=== PATIENT | female | born 1985 | race African-American/Black ===

== ENCOUNTER 2017-07-03 07:58 | Emergency (ER) | payer OTHER ==
[2017-07-03] MEDS ORDERED: ONDANSETRON 4 MG/2 ML VIAL IVP STA (08:23)
[2017-07-03] MEDS ORDERED: SODIUM CHLORIDE 0.9% 1,000 ML IV STA (08:23)
[2017-07-03] MEDS ORDERED: KETOROLAC 30 MG/ML 1 ML VIAL IVP STA (08:23)
--- NOTE | 2017-07-03 08:37 | ED ---
Nausea/Vomiting/Diarrhea HPI - General Chief complaint: Nausea/Vomiting/Diarrhea Stated complaint: Vomiting, backache Time Seen by Provider: 07/03/17 08:17 Source: patient, RN notes reviewed, old records reviewed Mode of arrival: ambulatory Limitations: no limitations - History of Present Illness Initial comments: This is a 32-year-old female presents emergency Department chief complaint of 1 week of abdominal pain radiating towards her back and upper shoulders. She reports that she saw her primary care provider and was initially told she had a sciatic nerve problem. She was prescribed muscle relaxers. Patient reports she has not taken them because it makes her sleepy. She reports that over the past few days she's had increased nausea and vomiting. She also reports daily diarrhea. She denies any blood in her stool or vomit. She denies any urinary frequency or concerns for infection or vaginal discharge. She does have an IUD. Surgical history also includes cholecystectomy, knee surgeries. - Related Data Previous Rx's Medication Instructions Recorded Nitrofurantoin Monohyd/M-Cryst 100 mg PO Q12HR #14 cap 07/03/17 [Macrobid] Ondansetron Odt [Zofran Odt] 4 mg PO Q8HR PRN #12 tab 07/03/17 Allergies Allergy/AdvReac Type Severity Reaction Status Date / Time No Known Allergies Allergy Verified 07/03/17 08:27 Review of Systems ROS Statement: Those systems with pertinent positive or pertinent negative responses have been documented in the HPI. ROS Other: All systems not noted in ROS Statement are negative. Past Medical History Past Medical History: No Reported History History of Any Multi-Drug Resistant Organisms: None Reported Past Surgical History: Cholecystectomy, Orthopedic Surgery Past Psychological History: No Psychological Hx Reported Smoking Status: Current some day smoker Past Alcohol Use History: None Reported Past Drug Use History: Marijuana General Exam - General Exam Comments Initial Comments: This is a 32-year-old female. Patient does not appear to be in any acute distress. Limitations: no limitations General appearance: alert, in no apparent distress Head exam: Present: atraumatic, normocephalic, normal inspection Eye exam: Present: normal appearance, PERRL, EOMI. Absent: scleral icterus, conjunctival injection, periorbital swelling ENT exam: Present: normal exam, mucous membranes moist Neck exam: Present: normal inspection. Absent: tenderness, meningismus, lymphadenopathy Respiratory exam: Present: normal lung sounds bilaterally. Absent: respiratory distress, wheezes, rales, rhonchi, stridor Cardiovascular Exam: Present: regular rate, normal rhythm, normal heart sounds. Absent: systolic murmur, diastolic murmur, rubs, gallop, clicks GI/Abdominal exam: Present: soft, tenderness (She has some epigastric tenderness.), normal bowel sounds. Absent: distended, guarding, rebound, rigid Extremities exam: Present: normal inspection, full ROM, normal capillary refill. Absent: tenderness, pedal edema, joint swelling, calf tenderness Back exam: Present: normal inspection, muscle spasm (Patient is tender to light palpation over the thoracic spine paraspinal muscles, as well as cervical spinal muscles.) Neurological exam: Present: alert, oriented X3, CN II-XII intact Psychiatric exam: Present: normal affect, normal mood Skin exam: Present: warm, dry, intact, normal color. Absent: rash Course Vital Signs 07/03/17 07:59 Temperature 97.9 F Pulse Rate 62 Respiratory 18 Rate Blood Pressure 118/56 O2 Sat by Pulse 99 Oximetry Medical Decision Making - Medical Decision Making 32-year-old female chief complaint of 1 week of back pain, and a couple episodes of vomiting. Patient's lab work was reviewed and no significant abnormalities, slight trace of blood in the urine and positive leukocyte esterase. There was a lot of epithelial cells indicating contamination. Culture will be obtained. However I will start the patient on Macrobid for concern for urinary tract infection. Patient will be discharged with a temperature medicine, she is a 31 been prescribed muscle relaxers from her PCP. Discussed that she needs to rest and remain hydrated. Patient understands treatment plan will comply. She was reevaluated just a better after receiving Toradol. - Lab Data Result diagrams: 07/03/17 08:57 07/03/17 08:57 Lab Results 07/03/17 07/03/17 07/03/17 Range/Units 08:57 08:57 08:57 WBC 7.5 (3.8-10.6) k/uL RBC 4.47 (3.80-5.40) m/uL Hgb 13.4 (11.4-16.0) gm/dL Hct 39.2 (34.0-46.0) % MCV 87.7 (80.0-100.0) fL MCH 30.0 (25.0-35.0) pg MCHC 34.2 (31.0-37.0) g/dL RDW 13.5 (11.5-15.5) % Plt Count 193 (150-450) k/uL Neutrophils % 69 % Lymphocytes % 23 % Monocytes % 4 % Eosinophils % 2 % Basophils % 1 % Neutrophils # 5.2 (1.3-7.7) k/uL Lymphocytes # 1.7 (1.0-4.8) k/uL Monocytes # 0.3 (0-1.0) k/uL Eosinophils # 0.1 (0-0.7) k/uL Basophils # 0.0 (0-0.2) k/uL Sodium 142 (137-145) mmol/L Potassium 3.5 (3.5-5.1) mmol/L Chloride 108 H (98-107) mmol/L Carbon Dioxide 24 (22-30) mmol/L Anion Gap 10 mmol/L BUN 9 (7-17) mg/dL Creatinine 0.58 (0.52-1.04) mg/dL Est GFR (MDRD) Af Amer >60 (>60 ml/min/1.73 sqM) Est GFR (MDRD) Non-Af >60 (>60 ml/min/1.73 sqM) Glucose 79 (74-99) mg/dL Calcium 9.4 (8.4-10.2) mg/dL Total Bilirubin 0.7 (0.2-1.3) mg/dL AST 15 (14-36) U/L ALT 21 (9-52) U/L Alkaline Phosphatase 77 (38-126) U/L Total Protein 6.9 (6.3-8.2) g/dL Albumin 4.1 (3.5-5.0) g/dL Amylase 34 (30-110) U/L Lipase 53 (23-300) U/L Urine Color Yellow Urine Appearance Cloudy H (Clear) Urine pH 6.0 (5.0-8.0) Ur Specific [place] 1.027 (1.001-1.035) Urine Protein 1+ H (Negative) Urine Glucose (UA) Negative (Negative) Urine Ketones 2+ H (Negative) Urine Blood Small H (Negative) Urine Nitrite Negative (Negative) Urine Bilirubin Negative (Negative) Urine Urobilinogen 2.0 (<2.0) mg/dL Ur Leukocyte Esterase Moderate H (Negative) Urine RBC 4 (0-5) /hpf Urine WBC 4 (0-5) /hpf Ur Squamous Epith Cells 52 H (0-4) /hpf Urine Bacteria Rare H (None) /hpf Urine Mucus Rare H (None) /hpf Urine HCG, Qual (Not Detectd) 07/03/17 Range/Units 08:57 WBC (3.8-10.6) k/uL RBC (3.80-5.40) m/uL Hgb (11.4-16.0) gm/dL Hct (34.0-46.0) % MCV (80.0-100.0) fL MCH (25.0-35.0) pg MCHC (31.0-37.0) g/dL RDW (11.5-15.5) % Plt Count (150-450) k/uL Neutrophils % % Lymphocytes % % Monocytes % % Eosinophils % % Basophils % % Neutrophils # (1.3-7.7) k/uL Lymphocytes # (1.0-4.8) k/uL Monocytes # (0-1.0) k/uL Eosinophils # (0-0.7) k/uL Basophils # (0-0.2) k/uL Sodium (137-145) mmol/L Potassium (3.5-5.1) mmol/L Chloride (98-107) mmol/L Carbon Dioxide (22-30) mmol/L Anion Gap mmol/L BUN (7-17) mg/dL Creatinine (0.52-1.04) mg/dL Est GFR (MDRD) Af Amer (>60 ml/min/1.73 sqM) Est GFR (MDRD) Non-Af (>60 ml/min/1.73 sqM) Glucose (74-99) mg/dL Calcium (8.4-10.2) mg/dL Total Bilirubin (0.2-1.3) mg/dL AST (14-36) U/L ALT (9-52) U/L Alkaline Phosphatase (38-126) U/L Total Protein (6.3-8.2) g/dL Albumin (3.5-5.0) g/dL Amylase (30-110) U/L Lipase (23-300) U/L Urine Color Urine Appearance (Clear) Urine pH (5.0-8.0) Ur Specific [place] (1.001-1.035) Urine Protein (Negative) Urine Glucose (UA) (Negative) Urine Ketones (Negative) Urine Blood (Negative) Urine Nitrite (Negative) Urine Bilirubin (Negative) Urine Urobilinogen (<2.0) mg/dL Ur Leukocyte Esterase (Negative) Urine RBC (0-5) /hpf Urine WBC (0-5) /hpf Ur Squamous Epith Cells (0-4) /hpf Urine Bacteria (None) /hpf Urine Mucus (None) /hpf Urine HCG, Qual Not Detected (Not Detectd) Disposition Clinical Impression: Back strain, UTI (urinary tract infection), Dehydration Disposition: HOME SELF-CARE Condition: Good Instructions: Acute Nausea and Vomiting (ED) Additional Instructions: Patient denies rest, remain hydrated. Muscle relaxers and anti-inflammatory medicines as prescribed. Completely antibiotic prescription. Follow-up with PCP. Return to the emergency department if any alarming signs or symptoms occur. Prescriptions: Nitrofurantoin Monohyd/M-Cryst [Macrobid] 100 mg PO Q12HR #14 cap Ondansetron Odt [Zofran Odt] 4 mg PO Q8HR PRN #12 tab PRN Reason: Nausea Referrals: Patty Mendoza MD [Primary Care Provider] - 1-2 days Time of Disposition: 10:29
[2017-07-03 09:20] LABS: Appearance,Urine Cloudy (Clear); Bacteria,Urine Rare /hpf; Bilirubin,Urine Negative (Negative); Glucose,Urine (UA) Negative (Negative); Ketones,Urine 2+ (Negative); Leukocyte Esterase,Urine Moderate (Negative); Mucus,Urine Rare /hpf; Nitrite,Urine Negative (Negative); Particle Count 8918; Protein,Urine 1+ (Negative); RBC,Urine 4 /hpf (0-5); Specific Gravity,Urine 1.027 (1.001-1.035); Squamous Epithelial Cell,Urine 52 /hpf (0-4); UA Billing (MACRO vs. MICRO) MICRO; WBC,Urine 4 /hpf (0-5)
[2017-07-03 09:28] LABS: Basophils % (A) 1 %; CH 29.2; CHCM 33.5; Eosinophils # (A) 0.1 k/uL (0-0.7); Eosinophils % (A) 2 %; HCT 39.2 % (34.0-46.0); HDW 2.53; HGB 13.4 gm/dL (11.4-16.0); Luc # (Auto) 0.12; Luc % (Auto) 2; Lymphocytes # (A) 1.7 k/uL (1.0-4.8); Lymphocytes % (A) 23 %; MCHC 34.2 g/dL (31.0-37.0); MCV 87.7 fL (80.0-100.0); Mean Platelet Volume 8.4; Monocytes # (A) 0.3 k/uL (0-1.0); Monocytes % (A) 4 %; Neutrophils # (A) 5.2 k/uL (1.3-7.7); Neutrophils % (A) 69 %; RBC 4.47 m/uL (3.80-5.40); RDW 13.5 % (11.5-15.5); WBC 7.5 k/uL (3.8-10.6); WBC (Perox) 7.24
[2017-07-03 09:29] LABS: ALT 21 U/L (9-52); AST 15 U/L (14-36); Alkaline Phosphatase 77 U/L (38-126); Amylase 34 U/L (30-110); Anion Gap 10 mmol/L; Blood Urea Nitrogen 9 mg/dL (7-17); Calcium 9.4 mg/dL (8.4-10.2); Carbon Dioxide 24 mmol/L (22-30); Chloride 108 mmol/L (98-107); Glucose 79 mg/dL (74-99); Non-African American GFR(MDRD) >60 (>60 ml/min/1.73 sqM); Potassium 3.5 mmol/L (3.5-5.1); Sodium 142 mmol/L (137-145); Total Bilirubin 0.7 mg/dL (0.2-1.3); Total Protein 6.9 g/dL (6.3-8.2)
--- NOTE | 2017-07-03 09:58 | XR ---
EXAMINATION TYPE: XR KUB DATE OF EXAM: 07/03/2017 COMPARISON: NONE HISTORY: Pain TECHNIQUE: One view abdominal series FINDINGS: The osseous structures are intact. The bowel gas pattern is nonspecific. Lung bases are clear. Surg ical clips in the gallbladder fossa noted. Intrauterine device seen. IMPRESSION: 1. Nonspecific abdomen.
[2017-07-03 10:32] VITALS: BP 105/58; PULSE 70; RESP 16; TEMP 97.2
== END 2017-07-03 10:49 | disposition home or self-care (01) ==
LOC: EC 07:58
DX: S29.012A Strain of muscle and tendon of back wall of thorax, initial encounter (principal); N39.0 Urinary tract infection, site not specified; E86.0 Dehydration; M62.830 Muscle spasm of back; F17.200 Nicotine dependence, unspecified, uncomplicated; Z90.49 Acquired absence of other specified parts of digestive tract; X58.XXXA Exposure to other specified factors, initial encounter
CPT/HCPCS: 99284; 96374; 96375; 96361 ×2; 36415; 80053; 82150; 83690; 85025; 81001; 81025; 87086; 87077; 87186; 74000; J2405; J1885

== ENCOUNTER 2017-12-07 04:56 | Emergency (ER) | payer OTHER ==
[2017-12-07 05:54] LABS: Appearance,Urine Clear (Clear); Bilirubin,Urine Negative (Negative); Blood,Urine Negative (Negative); Color,Urine Yellow; Glucose,Urine (UA) Negative (Negative); Ketones,Urine Negative (Negative); Leukocyte Esterase,Urine Negative (Negative); Nitrite,Urine Negative (Negative); PH, Urine 6.5 (5.0-8.0); Protein,Urine Negative (Negative); Specific Gravity,Urine 1.019 (1.001-1.035); Urobilinogen,Urine <2.0 mg/dL (<2.0)
[2017-12-07] MEDS ORDERED: MORPHINE SULFATE 5 MG/ML SYRINGE IV STA (05:55)
[2017-12-07 05:56] LABS: Basophils % (A) 1 %; Eosinophils # (A) 0.5 k/uL (0-0.7); Eosinophils % (A) 7 %; HCT 38.8 % (34.0-46.0); HGB 12.4 gm/dL (11.4-16.0); Lymphocytes # (A) 1.5 k/uL (1.0-4.8); Lymphocytes % (A) 21 %; MCH 28.9 pg (25.0-35.0); MCHC 32.1 g/dL (31.0-37.0); MCV 90.2 fL (80.0-100.0); Monocytes # (A) 0.3 k/uL (0-1.0); Monocytes % (A) 4 %; Neutrophils # (A) 4.6 k/uL (1.3-7.7); Neutrophils % (A) 66 %; Platelet Count 192 k/uL (150-450); RBC 4.29 m/uL (3.80-5.40); RDW 14.7 % (11.5-15.5)
[2017-12-07 06:13] LABS: ALT 14 U/L (9-52); AST 15 U/L (14-36); Albumin 3.7 g/dL (3.5-5.0); Alkaline Phosphatase 69 U/L (38-126); Amylase 47 U/L (30-110); Anion Gap 7 mmol/L; Blood Urea Nitrogen 13 mg/dL (7-17); Calcium 9.4 mg/dL (8.4-10.2); Carbon Dioxide 26 mmol/L (22-30); Chloride 108 mmol/L (98-107); Glucose 80 mg/dL (74-99); Lipase 99 U/L (23-300); Potassium 3.9 mmol/L (3.5-5.1); Sodium 141 mmol/L (137-145); Total Bilirubin 0.6 mg/dL (0.2-1.3); Total Protein 6.3 g/dL (6.3-8.2)
[2017-12-07 07:20] VITALS: RESP 16
--- NOTE | 2017-12-07 07:31 | CT ---
EXAM: CT Abdomen and Pelvis Without Intravenous Contrast CLINICAL HISTORY: Reason: Pain Pt c/o mid upper abd pain as well as pelvic pain x 7 days with nausea. SX HX-Cholecystectomy and IUD placement. TECHNIQUE: Axial computed tomography images of the abdomen and pelvis without intravenous contrast. CTDI is 12.30 mGy and DLP is 624.80 mGy-cm. This CT exam was performed using one or more of the following dose reduction techniques: automated exposure control, adjustment of the mA and/or kV according to patient size, and/or use of iterative reconstruction technique. COMPARISON: No relevant prior studies available. FINDINGS: Lower thorax: Minimal atelectasis or pneumonitis in the lingula. ABDOMEN: Liver: Unremarkable. Gallbladder and bile ducts: Cholecystectomy. No ductal dilation. Pancreas: Unremarkable. No ductal dilation. Spleen: Unremarkable. No splenomegaly. Adrenals: Unremarkable. No mass. Kidneys and ureters: Unremarkable. No obstructing stones. No hydronephrosis. Stomach and bowel: Few mildly distended small bowel loops. No mucosal thickening. Appendix: Normal appendix. PELVIS: Bladder: Unremarkable. No stones. Reproductive: IUD within the uterus, appears in appropriate position. ABDOMEN and PELVIS: Intraperitoneal space: Small amount of free fluid in the pelvis. No free air. Bones/joints: No acute fracture. No dislocation. Soft tissues: Small fat-containing umbilical hernia Vasculature: Unremarkable. No abdominal aortic aneurysm. Lymph nodes: Unremarkable. No enlarged lymph nodes. IMPRESSION: 1. Few mildly distended small bowel loops. May represent enteritis. 2. Cholecystectomy. 3. IUD within the uterus.
[2017-12-07] MEDS ORDERED: cefTRIAXone 250 MG VIAL IM STA (07:58)
--- NOTE | 2017-12-07 07:58 | ED ---
Abdominal Pain HPI <Juan Carlos Shanks - Last Filed: 12/07/17 08:27> - General Source: patient Mode of arrival: ambulatory Limitations: no limitations - History of Present Illness MD Complaint: abdominal pain Onset/Timin -: week(s) Location: LLQ, RLQ Radiation: none Migration to: no migration Severity: moderate Quality: cramping Consistency: colicky Improves With: nothing Worsens With: nothing Associated Symptoms: denies other symptoms <Jeancarlos Bautista - Last Filed: 12/13/17 01:33> - General Chief Complaint: Abdominal Pain Stated Complaint: abd pain Time Seen by Provider: 12/07/17 05:38 - History of Present Illness Initial Comments: This patient's a 32-year-old woman who presents with lower abdominal pain that is been going on for nearly one week. The pain is currently moderate in intensity, crampy and it is somewhat intermittent. She states that he can come on for hours at a time and then will improve somewhat. She was also seen at [facility] stating that she had a workup there and was told that everything came back normal. Patient denies change in urination or bowel movements. No vaginal discharge. (Jeancarlos Bautista) - Related Data Home Medications Medication Instructions Recorded Confirmed Acetaminophen Tab [Tylenol Tab] 650 mg PO Q4-6H PRN 12/07/17 12/07/17 Ibuprofen [Motrin Ib] 200 - 400 mg PO Q4-6H PRN 12/07/17 12/07/17 traMADol HCL [Ultram] 50 mg PO ONCE PRN 12/07/17 12/07/17 Previous Rx's Medication Instructions Recorded Doxycycline Monohydrate [Monodox] 100 mg PO Q12HR #28 cap 12/07/17 Allergies Allergy/AdvReac Type Severity Reaction Status Date / Time amoxicillin Allergy Anaphylaxis Verified 12/07/17 05:06 Review of Systems ROS Other: All systems not noted in ROS Statement are negative. <Juan Carlos Shanks - Last Filed: 12/07/17 08:27> ROS Other: All systems not noted in ROS Statement are negative. Constitutional: Denies: fever, chills Respiratory: Denies: cough, dyspnea, wheezes Cardiovascular: Denies: chest pain, palpitations, edema Gastrointestinal: Reports: abdominal pain. Denies: nausea, vomiting, diarrhea, constipation Genitourinary: Denies: dysuria, frequency, hematuria, discharge, abnormal menses Musculoskeletal: Denies: back pain Skin: Denies: rash Neurological: Denies: headache, weakness, numbness <Jeancarlos Bautista Last Filed: 12/13/17 01:33> ROS Statement: Those systems with pertinent positive or pertinent negative responses have been documented in the HPI. Past Medical History Past Medical History: No Reported History Additional Past Medical History / Comment(s): ovarian cysts History of Any Multi-Drug Resistant Organisms: None Reported Past Surgical History: Cholecystectomy, Orthopedic Surgery Past Psychological History: No Psychological Hx Reported Smoking Status: Former smoker Past Alcohol Use History: Occasional Past Drug Use History: Marijuana <Jeancarlos Bautista Last Filed: 12/13/17 01:33> General Exam Limitations: no limitations General appearance: alert, in no apparent distress Head exam: Present: atraumatic, normocephalic Eye exam: Present: normal appearance. Absent: scleral icterus, conjunctival injection Neck exam: Present: normal inspection Respiratory exam: Present: normal lung sounds bilaterally. Absent: respiratory distress, wheezes, rales, rhonchi, stridor Cardiovascular Exam: Present: regular rate, normal rhythm, normal heart sounds. Absent: systolic murmur, diastolic murmur, rubs, gallop GI/Abdominal exam: Present: soft, tenderness (There is mild bilateral lower quadrant tenderness without rebound or guarding), normal bowel sounds. Absent: distended, guarding, rebound, rigid, organomegaly, mass, pulsatile mass External exam: Present: normal external exam. Absent: erythema, swelling, lesions, lacerations, ecchymosis Speculum exam: Present: cervical discharge (There is a trace of what appears to be slightly bloody, slightly purulent discharge). Absent: erythema By manual exam: Present: cervical motion tenderness. Absent: adnexal tenderness , adnexal mass, uterine enlargement, uterine tenderness Extremities exam: Present: normal inspection, normal capillary refill. Absent: pedal edema, calf tenderness Back exam: Present: normal inspection. Absent: CVA tenderness (R), CVA tenderness (L) Neurological exam: Present: alert Skin exam: Present: warm, dry, intact, normal color. Absent: rash <MindiJeancarlos helms Last Filed: 02/04/18 01:33> Vital Signs 12/07/17 12/07/17 12/07/17 05:02 07:19 08:38 Temperature 97.6 F 98.2 F Pulse Rate 75 78 Respiratory 20 16 16 Rate Blood Pressure 116/67 117/62 118/79 O2 Sat by Pulse 100 Oximetry Medical Decision Making - Lab Data Result diagrams: 12/07/17 05:40 12/07/17 05:40 <Juan Carlos Shanks - Last Filed: 12/07/17 08:27> - Lab Data Result diagrams: 12/07/17 05:40 12/07/17 05:40 <Jeancarlos Bautista - Last Filed: 12/13/17 01:33> - Medical Decision Making Patient is a 32-year-old woman with bilateral lower quadrant abdominal pain of nearly one week duration. Her initial workup is unremarkable. Given this recommended pelvic examination which is performed here in the emergency department. The patient does have some cervical motion tenderness and will be treated empirically pending the results of her swabs, and follow-up with gynecology to ensure that there is improvement. Discussed return parameters. ( Jeancarlos Bautista) - Lab Data Lab Results 12/07/17 12/07/17 12/07/17 Range/Units 05:22 05:22 05:40 WBC (3.8-10.6) k/uL RBC (3.80-5.40) m/uL Hgb (11.4-16.0) gm/dL Hct (34.0-46.0) % MCV (80.0-100.0) fL MCH (25.0-35.0) pg MCHC (31.0-37.0) g/dL RDW (11.5-15.5) % Plt Count (150-450) k/uL Neutrophils % % Lymphocytes % % Monocytes % % Eosinophils % % Basophils % % Neutrophils # (1.3-7.7) k/uL Lymphocytes # (1.0-4.8) k/uL Monocytes # (0-1.0) k/uL Eosinophils # (0-0.7) k/uL Basophils # (0-0.2) k/uL Sodium 141 (137-145) mmol/L Potassium 3.9 (3.5-5.1) mmol/L Chloride 108 H (98-107) mmol/L Carbon Dioxide 26 (22-30) mmol/L Anion Gap 7 mmol/L BUN 13 (7-17) mg/dL Creatinine 0.65 (0.52-1.04) mg/dL Est GFR (MDRD) Af Amer >60 (>60 ml/min/1.73 sqM) Est GFR (MDRD) Non-Af >60 (>60 ml/min/1.73 sqM) Glucose 80 (74-99) mg/dL Calcium 9.4 (8.4-10.2) mg/dL Total Bilirubin 0.6 (0.2-1.3) mg/dL AST 15 (14-36) U/L ALT 14 (9-52) U/L Alkaline Phosphatase 69 (38-126) U/L Total Protein 6.3 (6.3-8.2) g/dL Albumin 3.7 (3.5-5.0) g/dL Amylase 47 (30-110) U/L Lipase 99 (23-300) U/L Urine Color Yellow Urine Appearance Clear (Clear) Urine pH 6.5 (5.0-8.0) Ur Specific [place] 1.019 (1.001-1.035) Urine Protein Negative (Negative) Urine Glucose (UA) Negative (Negative) Urine Ketones Negative (Negative) Urine Blood Negative (Negative) Urine Nitrite Negative (Negative) Urine Bilirubin Negative (Negative) Urine Urobilinogen <2.0 (<2.0) mg/dL Ur Leukocyte Esterase Negative (Negative) Urine HCG, Qual Not Detected (Not Detectd) C.trachomatis RNA (Not detected) Chlamydia/GC DNA Source N.gonorrhoeae RNA (Not detected) Trichomonas Ag (Rapid) (Negative) 12/07/17 12/07/17 12/07/17 Range/Units 05:40 07:50 07:50 WBC 7.0 (3.8-10.6) k/uL RBC 4.29 (3.80-5.40) m/uL Hgb 12.4 (11.4-16.0) gm/dL Hct 38.8 (34.0-46.0) % MCV 90.2 (80.0-100.0) fL MCH 28.9 (25.0-35.0) pg MCHC 32.1 (31.0-37.0) g/dL RDW 14.7 (11.5-15.5) % Plt Count 192 (150-450) k/uL Neutrophils % 66 % Lymphocytes % 21 % Monocytes % 4 % Eosinophils % 7 % Basophils % 1 % Neutrophils # 4.6 (1.3-7.7) k/uL Lymphocytes # 1.5 (1.0-4.8) k/uL Monocytes # 0.3 (0-1.0) k/uL Eosinophils # 0.5 (0-0.7) k/uL Basophils # 0.0 (0-0.2) k/uL Sodium (137-145) mmol/L Potassium (3.5-5.1) mmol/L Chloride (98-107) mmol/L Carbon Dioxide (22-30) mmol/L Anion Gap mmol/L BUN (7-17) mg/dL Creatinine (0.52-1.04) mg/dL Est GFR (MDRD) Af Amer (>60 ml/min/1.73 sqM) Est GFR (MDRD) Non-Af (>60 ml/min/1.73 sqM) Glucose (74-99) mg/dL Calcium (8.4-10.2) mg/dL Total Bilirubin (0.2-1.3) mg/dL AST (14-36) U/L ALT (9-52) U/L Alkaline Phosphatase (38-126) U/L Total Protein (6.3-8.2) g/dL Albumin (3.5-5.0) g/dL Amylase (30-110) U/L Lipase (23-300) U/L Urine Color Urine Appearance (Clear) Urine pH (5.0-8.0) Ur Specific [place] (1.001-1.035) Urine Protein (Negative) Urine Glucose (UA) (Negative) Urine Ketones (Negative) Urine Blood (Negative) Urine Nitrite (Negative) Urine Bilirubin (Negative) Urine Urobilinogen (<2.0) mg/dL Ur Leukocyte Esterase (Negative) Urine HCG, Qual (Not Detectd) C.trachomatis RNA Not detected (Not detected) Chlamydia/GC DNA Source Endocervix N.gonorrhoeae RNA Not detected (Not detected) Trichomonas Ag (Rapid) Negative (Negative) Disposition <Juan Carlos Shanks - Last Filed: 12/07/17 08:27> <Jeancarlos Bautista Last Filed: 12/13/17 01:33> Clinical Impression: Abdominal pain, Cervicitis Disposition: HOME SELF-CARE Condition: Good Instructions: Cervicitis (ED), Abdominal Pain (ED) Prescriptions: Doxycycline Monohydrate [Monodox] 100 mg PO Q12HR #28 cap Referrals: Patty Mendoza MD [Primary Care Provider] - 1-2 days Dorene Singh MD [STAFF PHYSICIAN] - 1-2 days
[2017-12-07] MEDS ORDERED: DOXYCYCLINE 50 MG CAP PO STA (07:59)
[2017-12-07 08:40] VITALS: BP 118/79; PULSE 78; TEMP 98.2
[2017-12-08 09:49] LABS: Chlamydia trachomatis rRNA Not detected (Not detected); Neisseria gonorrhoeae rRNA Not detected (Not detected)
== END 2017-12-07 08:44 | disposition home or self-care (01) ==
LOC: EC 04:56
DX: N72 Inflammatory disease of cervix uteri (principal); R10.31 Right lower quadrant pain; R10.32 Left lower quadrant pain; Z87.891 Personal history of nicotine dependence; Z88.0 Allergy status to penicillin; Z90.49 Acquired absence of other specified parts of digestive tract
CPT/HCPCS: 36415; 80053; 87591; 87491; 82150; 83690; 85025; 81003; 81025; 87808; 87070; 74176; 99284; 96374; 96372; J0696; J2274; 87205

== ENCOUNTER 2018-08-13 18:14 | Observation (INO) | payer OTHER ==
[2018-08-13] MEDS ORDERED: SODIUM CHLORIDE 0.9% 1,000 ML IV STA (19:37)
--- NOTE | 2018-08-13 19:42 | ED ---
General Adult HPI - General Chief complaint: Abdominal Pain Stated complaint: Abdominal pain Time Seen by Provider: 08/13/18 19:08 Source: patient, RN notes reviewed Mode of arrival: ambulatory Limitations: no limitations - History of Present Illness Initial comments: 33-year-old female presents to the emergency department for a chief complaint of abdominal pain 2 days. Patient states this pain started last night. Patient states it is a sharp pain in the generalized abdomen. Patient states she has experienced this on and off for months. She states the pain comes and goes. She states she does have an IUD in place that a physician at [facility] told her she should have removed. However, patient saw her OB/ ORTHOPEDIC PHYSICIAN ASSISTANT night about this who stated the IUD did not need to be removed. Patient has had this IUD for 4 years without any problems. Patient admits to nausea with this pain but denies any vomiting. Patient states she is having normal bowel movements. Patient denies any symptoms of STD such as vaginal discharge but does state it is possible and would like to be tested today. Patient has no other complaints at this time including shortness of breath, chest pain, nausea or vomiting, headache, or visual changes. - Related Data Home Medications Medication Instructions Recorded Confirmed Acetaminophen Tab [Tylenol Tab] 650 mg PO Q4-6H PRN 12/07/17 12/07/17 Ibuprofen [Motrin Ib] 200 - 400 mg PO Q4-6H PRN 12/07/17 12/07/17 traMADol HCL [Ultram] 50 mg PO ONCE PRN 12/07/17 12/07/17 Previous Rx's Medication Instructions Recorded Doxycycline Monohydrate [Monodox] 100 mg PO Q12HR #28 cap 12/07/17 Allergies Allergy/AdvReac Type Severity Reaction Status Date / Time amoxicillin Allergy Anaphylaxis Verified 08/13/18 18:29 Review of Systems ROS Statement: Those systems with pertinent positive or pertinent negative responses have been documented in the HPI. ROS Other: All systems not noted in ROS Statement are negative. Past Medical History Past Medical History: No Reported History Additional Past Medical History / Comment(s): ovarian cysts History of Any Multi-Drug Resistant Organisms: None Reported Past Surgical History: Cholecystectomy, Orthopedic Surgery Past Psychological History: No Psychological Hx Reported Smoking Status: Current some day smoker Past Alcohol Use History: Occasional Past Drug Use History: Marijuana General Exam Limitations: no limitations General appearance: alert, in no apparent distress Head exam: Present: atraumatic, normocephalic, normal inspection Eye exam: Present: normal appearance, PERRL, EOMI. Absent: scleral icterus, conjunctival injection, periorbital swelling ENT exam: Present: normal exam, mucous membranes moist Neck exam: Present: normal inspection. Absent: tenderness, meningismus, lymphadenopathy Respiratory exam: Present: normal lung sounds bilaterally. Absent: respiratory distress, wheezes, rales, rhonchi, stridor Cardiovascular Exam: Present: regular rate, normal rhythm, normal heart sounds. Absent: systolic murmur, diastolic murmur, rubs, gallop, clicks GI/Abdominal exam: Present: soft, tenderness (Generalized abdominal tenderness notably worse in lower abdomen), guarding (mild gaurding noted generally), normal bowel sounds. Absent: distended, rebound (no rebound tenderness.), rigid External exam: Present: normal external exam. Absent: erythema, swelling, lesions, lacerations, ecchymosis Speculum exam: Present: normal speculum exam, vaginal bleeding (minimal bleeding noted), other (IUD strings not visualized). Absent: erythema, vaginal discharge, cervical discharge By manual exam: Present: cervical motion tenderness (significant cervical tenderness), adnexal tenderness (Significant left adnexal tenderness), uterine tenderness. Absent: normal by manual exam, adnexal mass, uterine enlargement Neurological exam: Present: alert, oriented X3, CN II-XII intact Psychiatric exam: Present: normal affect, normal mood Course Vital Signs 08/13/18 18:27 Temperature 98 F Pulse Rate 90 Respiratory 18 Rate Blood Pressure 122/74 O2 Sat by Pulse 100 Oximetry Medical Decision Making - Medical Decision Making 33-year-old female presents to the emergency department for a chief complaint of abdominal pain 2 days. Patient states his pain started yesterday. She denies fevers or chills. Vital signs are within normal limit with a temperature of 98, pulse of 90, blood pressure 122/74. CBC and CMP are unremarkable. HCG negative. Urine was cultured. On exam patient has generalized lower abdominal tenderness worse in the left lower quadrant and suprapubic area. Patient does have significant cervical motion and left adnexal tenderness. Trichomonas negative. Gonorrhea and chlamydia pending. Ultrasound shows extensive complex fluid in the pelvis with a complex vascular mass in the left adnexal region. This could be consistent with PID or endometriosis. Dr. Finley was consulted. Patient was started on IV antibiotics for possible PID as well as a pain regimen. She will be admitted. - Lab Data Result diagrams: 08/13/18 20:03 08/13/18 20:03 Lab Results 08/13/18 08/13/18 08/13/18 Range/Units 20:03 20:03 20:03 WBC 6.4 (3.8-10.6) k/uL RBC 4.05 (3.80-5.40) m/uL Hgb 12.3 (11.4-16.0) gm/dL Hct 37.6 (34.0-46.0) % MCV 92.7 (80.0-100.0) fL MCH 30.4 (25.0-35.0) pg MCHC 32.8 (31.0-37.0) g/dL RDW 13.8 (11.5-15.5) % Plt Count 173 (150-450) k/uL Neutrophils % 81 % Lymphocytes % 10 % Monocytes % 5 % Eosinophils % 3 % Basophils % 0 % Neutrophils # 5.2 (1.3-7.7) k/uL Lymphocytes # 0.6 L (1.0-4.8) k/uL Monocytes # 0.3 (0-1.0) k/uL Eosinophils # 0.2 (0-0.7) k/uL Basophils # 0.0 (0-0.2) k/uL Sodium 140 (137-145) mmol/L Potassium 3.9 (3.5-5.1) mmol/L Chloride 109 H (98-107) mmol/L Carbon Dioxide 24 (22-30) mmol/L Anion Gap 7 mmol/L BUN 10 (7-17) mg/dL Creatinine 0.59 (0.52-1.04) mg/dL Est GFR (CKD-EPI)AfAm >90 (>60 ml/min/1.73 sqM) Est GFR (CKD-EPI)NonAf >90 (>60 ml/min/1.73 sqM) Glucose 86 (74-99) mg/dL Calcium 8.8 (8.4-10.2) mg/dL Total Bilirubin 0.4 (0.2-1.3) mg/dL AST 15 (14-36) U/L ALT 21 (9-52) U/L Alkaline Phosphatase 75 (38-126) U/L Total Protein 6.1 L (6.3-8.2) g/dL Albumin 3.5 (3.5-5.0) g/dL Amylase 52 (30-110) U/L Lipase 120 (23-300) U/L Urine Color Yellow Urine Appearance Turbid H (Clear) Urine pH 8.0 (5.0-8.0) Ur Specific [place] 1.015 (1.001-1.035) Urine Protein Trace H (Negative) Urine Glucose (UA) Negative (Negative) Urine Ketones Negative (Negative) Urine Blood Small H (Negative) Urine Nitrite Negative (Negative) Urine Bilirubin Negative (Negative) Urine Urobilinogen <2.0 (<2.0) mg/dL Ur Leukocyte Esterase Small H (Negative) Ur Squamous Epith Cells 15 H (0-4) /hpf Amorphous Sediment Rare H (None) /hpf Urine Bacteria Many H (None) /hpf Urine Mucus Moderate H (None) /hpf Urine HCG, Qual (Not Detectd) Trichomonas Ag (Rapid) (Negative) 08/13/18 08/13/18 Range/Units 20:03 22:03 WBC (3.8-10.6) k/uL RBC (3.80-5.40) m/uL Hgb (11.4-16.0) gm/dL Hct (34.0-46.0) % MCV (80.0-100.0) fL MCH (25.0-35.0) pg MCHC (31.0-37.0) g/dL RDW (11.5-15.5) % Plt Count (150-450) k/uL Neutrophils % % Lymphocytes % % Monocytes % % Eosinophils % % Basophils % % Neutrophils # (1.3-7.7) k/uL Lymphocytes # (1.0-4.8) k/uL Monocytes # (0-1.0) k/uL Eosinophils # (0-0.7) k/uL Basophils # (0-0.2) k/uL Sodium (137-145) mmol/L Potassium (3.5-5.1) mmol/L Chloride (98-107) mmol/L Carbon Dioxide (22-30) mmol/L Anion Gap mmol/L BUN (7-17) mg/dL Creatinine (0.52-1.04) mg/dL Est GFR (CKD-EPI)AfAm (>60 ml/min/1.73 sqM) Est GFR (CKD-EPI)NonAf (>60 ml/min/1.73 sqM) Glucose (74-99) mg/dL Calcium (8.4-10.2) mg/dL Total Bilirubin (0.2-1.3) mg/dL AST (14-36) U/L ALT (9-52) U/L Alkaline Phosphatase (38-126) U/L Total Protein (6.3-8.2) g/dL Albumin (3.5-5.0) g/dL Amylase (30-110) U/L Lipase (23-300) U/L Urine Color Urine Appearance (Clear) Urine pH (5.0-8.0) Ur Specific [place] (1.001-1.035) Urine Protein (Negative) Urine Glucose (UA) (Negative) Urine Ketones (Negative) Urine Blood (Negative) Urine Nitrite (Negative) Urine Bilirubin (Negative) Urine Urobilinogen (<2.0) mg/dL Ur Leukocyte Esterase (Negative) Ur Squamous Epith Cells (0-4) /hpf Amorphous Sediment (None) /hpf Urine Bacteria (None) /hpf Urine Mucus (None) /hpf Urine HCG, Qual Not Detected (Not Detectd) Trichomonas Ag (Rapid) Negative (Negative) Disposition Clinical Impression: PID (acute pelvic inflammatory disease) Disposition: ADMITTED IP TO THIS HOSP Is patient prescribed a controlled substance at d/c from ED?: No Referrals: Patty Mendoza MD [Primary Care Provider] - 1-2 days Time of Disposition: 22:50
[2018-08-13 20:18] LABS: Basophils % (A) 0 %; Eosinophils # (A) 0.2 k/uL (0-0.7); Eosinophils % (A) 3 %; HCT 37.6 % (34.0-46.0); HGB 12.3 gm/dL (11.4-16.0); Lymphocytes # (A) 0.6 k/uL (1.0-4.8); Lymphocytes % (A) 10 %; MCH 30.4 pg (25.0-35.0); MCHC 32.8 g/dL (31.0-37.0); MCV 92.7 fL (80.0-100.0); Monocytes # (A) 0.3 k/uL (0-1.0); Monocytes % (A) 5 %; Neutrophils # (A) 5.2 k/uL (1.3-7.7); Neutrophils % (A) 81 %; Platelet Count 173 k/uL (150-450); RBC 4.05 m/uL (3.80-5.40); RDW 13.8 % (11.5-15.5); WBC 6.4 k/uL (3.8-10.6)
[2018-08-13 20:20] LABS: Amorphous Sediment,Urine Rare /hpf; Appearance,Urine Turbid (Clear); Bacteria,Urine Many /hpf; Bilirubin,Urine Negative (Negative); Blood,Urine Small (Negative); Color,Urine Yellow; Glucose,Urine (UA) Negative (Negative); Ketones,Urine Negative (Negative); Leukocyte Esterase,Urine Small (Negative); Mucus,Urine Moderate /hpf; Nitrite,Urine Negative (Negative); Protein,Urine Trace (Negative); Specific Gravity,Urine 1.015 (1.001-1.035); Squamous Epithelial Cell,Urine 15 /hpf (0-4); Urobilinogen,Urine <2.0 mg/dL (<2.0)
[2018-08-13 20:27] LABS: ALT 21 U/L (9-52); AST 15 U/L (14-36); Albumin 3.5 g/dL (3.5-5.0); Alkaline Phosphatase 75 U/L (38-126); Amylase 52 U/L (30-110); Anion Gap 7 mmol/L; Blood Urea Nitrogen 10 mg/dL (7-17); Calcium 8.8 mg/dL (8.4-10.2); Carbon Dioxide 24 mmol/L (22-30); Chloride 109 mmol/L (98-107); Glucose 86 mg/dL (74-99); Lipase 120 U/L (23-300); Potassium 3.9 mmol/L (3.5-5.1); Sodium 140 mmol/L (137-145); Total Bilirubin 0.4 mg/dL (0.2-1.3); Total Protein 6.1 g/dL (6.3-8.2)
--- NOTE | 2018-08-13 21:23 | US ---
EXAMINATION TYPE: US transvaginal DATE OF EXAM: 08/13/2018 COMPARISON: CT 12/07/2017, US 02/27/2014 CLINICAL HISTORY: Pain. Generalized abdominal/pelvic pain. Difficult exam due to patient pain TECHNIQUE: . Transvaginal sonographic images of the pelvis were acquired. Date of LMP: June EXAM MEASUREMENTS: Uterus: 8.0 x 3.7 x 4.8 cm Endometrial Stripe: 0.4 cm Right Ovary: 2.4 x 2.2 x 2.0 cm Left Ovary: 7.7 x 2.1 x 7.1 cm 1. Uterus: Anteverted wnl 2. Endometrium: wnl, IUD visualized in mid/fundal portion 3. Right Ovary: wnl as visualized, only visualized transabdominally 4. Left Ovary: Within the left adnexa, there is a complex, vascular area visualized measuring 7.7 x 2.1 x 7.1, possible left ovary. There is a complex area within visualized measuring 2.6 cm Spectral, color and waveform doppler imaging shows good arterial and venous flow within the ovaries ; there is no evidence for ovarian torsion. 5. Bilateral Adnexa: Free fluid with debris visualized within the left adnexa 6. Posterior cul-de-sac: Free fluid with debris visualized IMPRESSION: There is extensive complex fluid in the pelvis. There is a complex vascular mass in the l eft adnexal region. If this patient is not and I would consider possibilities of PID and end ometriosis. Ectopic cannot be excluded.
[2018-08-13] MEDS ORDERED: KETOROLAC 30 MG/ML 1 ML VIAL IVP STA (21:24)
[2018-08-13] MEDS ORDERED: cefOXitin IN SWFI 2 GM/10 ML SYRINGE IVP SCH (22:00)
[2018-08-13] MEDS ORDERED: MORPHINE SULFATE 4 MG/ML SYRINGE IVP STA (22:06)
[2018-08-13] MEDS ORDERED: NALOXONE 0.4 MG/ML 1 ML VIAL IV PRN (22:22)
[2018-08-13] MEDS ORDERED: HYDROmorphone 1 MG/ML 1 ML SYRINGE IVP PRN (22:22)
[2018-08-13] MEDS ORDERED: [UNRECOGNIZED DRUG - OTHER] IVP SCH (22:30)
[2018-08-13] MEDS: SODIUM CHLORIDE 0.9% 1,000 ML IV SCH (22:45)
[2018-08-13] MEDS: DOXYCYCLINE 100 MG in SODIUM CHLORIDE 0.9% 100 ML IVPB SCH (23:15)
--- NOTE | 2018-08-14 00:19 | P.HPOB ---
History of Present Illness H&P Date: 08/13/18 Chief Complaint: Pelvic pain 33-year-old presented to the emergency room department with left lower quadrant pain. 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 She has recently gone back together with her boyfriend, but a month ago, and is not using condoms. Ultrasound today revealed a 7 cm left ovary with a 2.6 cm complex cystic lesion. There is flow to this left ovary, and torsion has been ruled out. There is free fluid on this ovary is thought to be pelvic inflammatory disease and a tubo-ovarian abscess. Patient is afebrile and does not have an elevation in her white blood cell count. I will admit patient to hospital for IV antibiotics and in 24 hours I will remove her intrauterine device. Review of Systems All systems: negative Constitutional: Denies chills, Denies fever Eyes: denies blurred vision, denies pain Ears, nose, mouth and throat: Denies headache, Denies sore throat Cardiovascular: Denies chest pain, Denies shortness of breath Respiratory: Denies cough Gastrointestinal: Denies abdominal pain, Denies diarrhea, Denies nausea, Denies vomiting Genitourinary: Denies dysuria, Denies hematuria Musculoskeletal: Denies myalgias Integumentary: Denies pruritus, Denies rash Neurological: Denies numbness, Denies weakness Psychiatric: Denies anxiety, Denies depression Endocrine: Denies fatigue, Denies weight change Past Medical History Past Medical History: No Reported History Additional Past Medical History / Comment(s): Obstetric history: Patient has 2 vaginal deliveries and 1 termination History of Any Multi-Drug Resistant Organisms: None Reported Past Surgical History: Cholecystectomy, Orthopedic Surgery Past Psychological History: No Psychological Hx Reported Smoking Status: Current some day smoker Past Alcohol Use History: Occasional Past Drug Use History: Marijuana Medications and Allergies Home Medications Medication Instructions Recorded Confirmed Type No Known Home Medications 08/13/18 08/13/18 History Allergies Allergy/AdvReac Type Severity Reaction Status Date / Time amoxicillin Allergy Anaphylaxis Verified 08/13/18 23:06 Exam Osteopathic Statement: *. No significant issues noted on an osteopathic structural exam other than those noted in the History and Physical/Consult. Vital Signs Temp Pulse Resp BP Pulse Ox 08/13/18 23:18 98.0 F 83 16 118/70 100 08/13/18 18:27 98 F 90 18 122/74 100 Intake and Output 08/13/18 08/13/18 08/14/18 14:59 22:59 06:59 Other: Weight 83.915 kg Heart: regular rate and rhythm lungs: clear to auscultation bilaterally abdomen : soft and tender in the left lower quadrant extremities: negative Homans sign Results Result Diagrams: 08/13/18 20:03 08/13/18 20:03 Abnormal Lab Results - Last 24 Hours (Table) 08/13/18 08/13/18 08/13/18 Range/Units 20:03 20:03 20:03 Lymphocytes # 0.6 L (1.0-4.8) k/uL Chloride 109 H (98-107) mmol/L Total Protein 6.1 L (6.3-8.2) g/dL Urine Appearance Turbid H (Clear) Urine Protein Trace H (Negative) Urine Blood Small H (Negative) Ur Leukocyte Esterase Small H (Negative) Ur Squamous Epith Cells 15 H (0-4) /hpf Amorphous Sediment Rare H (None) /hpf Urine Bacteria Many H (None) /hpf Urine Mucus Moderate H (None) /hpf Assessment and Plan (1) PID (acute pelvic inflammatory disease) Current Visit: Yes Status: Acute Code(s): N73.0 - ACUTE PARAMETRITIS AND PELVIC CELLULITIS SNOMED Code(s): 069584208 (2) Tubo-ovarian abscess Current Visit: Yes Status: Acute Code(s): N70.93 - SALPINGITIS AND OOPHORITIS, UNSPECIFIED SNOMED Code(s): 45481150 Plan: 1. Admit to inpatient for IV antibiotics 2. Pain control 3. Remove intrauterine device after 24h of IV antibiotics
[2018-08-14 02:40] VITALS: BMI 27.0
[2018-08-14] MEDS: KETOROLAC 30 MG/ML 1 ML VIAL IVP PRN (05:49)
[2018-08-14] MEDS: SODIUM CHLORIDE 0.9% 1,000 ML IV SCH ×2 (08:50→18:48)
[2018-08-14] MEDS: DOXYCYCLINE 100 MG in SODIUM CHLORIDE 0.9% 100 ML IVPB SCH ×2 (11:13→22:12)
[2018-08-14 14:36] LABS: C. trachomatis,PCR Negative (Neg,Equiv); Chlamydia trachomatis Source Vagina
[2018-08-14 14:40] LABS: N. gonorrhoeae,PCR Negative (Neg,Equiv); Neisseria Source Vagina
[2018-08-14] MEDS ORDERED: ONDANSETRON 4 MG/2 ML VIAL IVP PRN (15:53)
[2018-08-14] MEDS: ACETAMINOPHEN TAB 325 MG TAB PO PRN (22:15)
[2018-08-15] MEDS: SODIUM CHLORIDE 0.9% 1,000 ML IV SCH (05:20)
[2018-08-15 05:24] VITALS: RESP 18
[2018-08-15] MEDS: ACETAMINOPHEN TAB 325 MG TAB PO PRN (09:06)
[2018-08-15 09:15] VITALS: BP 124/70; PULSE 50; TEMP 98.6
--- NOTE | 2018-08-15 09:32 | P.DS ---
Providers Date of admission: 08/13/18 22:55 Expected date of discharge: 08/15/18 Attending physician: Brianne Finley Primary care physician: Patty Mendoza - Discharge Diagnosis(es) (1) PID (acute pelvic inflammatory disease) Current Visit: Yes Status: Ruled-out (2) Tubo-ovarian abscess Current Visit: Yes Status: Suspected (3) Endometriosis Current Visit: Yes Status: Acute (4) Endometrioma of ovary Current Visit: Yes Status: Acute (5) Encounter for IUD removal Current Visit: Yes Status: Acute Hospital Course: Patient presented with left lower quadrant pain/pelvic pain. Ultrasound showed a 7 cm ovary with a 2.6 cm complex cyst-the first suspected possible tubo- ovarian abscess but upon further history patient does have history of endometriosis and this is likely an endometrioma. She was given 36 hours of IV antibiotics and then her IUD was removed, per patient request and for treatment of ovarian cysts and in case this is a case of PID or tubo-ovarian abscess. I will continue to treat her with oral antibiotics and oral contraceptive pills. I will see her in 6 weeks time and at that time repeat her imaging. If her pain increases she is to contact my office and to be seen sooner. Plan - Discharge Summary New Discharge Prescriptions: No Action Ibuprofen 800 mg PO Q6HR Discharge Medication List Ibuprofen 800 mg PO Q6HR 08/14/18 [History] Follow up Appointment(s)/Referral(s): Patty Mendoza MD [Primary Care Provider] - 1-2 days
[2018-08-15] MEDS: KETOROLAC 30 MG/ML 1 ML VIAL IVP PRN (10:54)
== END 2018-08-15 11:35 | disposition home or self-care (01) ==
LOC: EC 18:14 → 6PED 22:55
PROVIDERS: ADMIT Obstetrics & Gynecology; ATTEND Obstetrics & Gynecology
DX: N80.1 Endometriosis of ovary (principal); N83.202 Unspecified ovarian cyst, left side; Z30.432 Encounter for removal of intrauterine contraceptive device; F17.200 Nicotine dependence, unspecified, uncomplicated; Z88.0 Allergy status to penicillin; Z90.49 Acquired absence of other specified parts of digestive tract
CPT/HCPCS: 96366 ×2; 96367; 96375 ×2; 96376 ×2; 96361; 96365; 99285; 36415; 80053; 82150; 83690; 85025; 81001; 81025; 87040; 87808; 87491; 87591; 87086; 87077; 87186; 93975; 76830; 58301; G0378 ×3; J2270; J2405; J0694 ×2; J1885 ×3; J1170

== ENCOUNTER 2018-08-27 17:25 | Emergency (ER) | payer OTHER ==
[2018-08-27] MEDS ORDERED: SODIUM CHLORIDE 0.9% 1,000 ML IV STA (19:11)
[2018-08-27] MEDS ORDERED: ONDANSETRON 4 MG/2 ML VIAL IVP STA (19:11)
[2018-08-27] MEDS ORDERED: MORPHINE SULFATE 4 MG/ML SYRINGE IV STA (19:11)
--- NOTE | 2018-08-27 19:19 | ED ---
Abdominal Pain HPI - General Chief Complaint: Abdominal Pain Stated Complaint: Abd Pain Time Seen by Provider: 08/27/18 19:03 Source: patient Mode of arrival: ambulatory Limitations: no limitations - History of Present Illness Initial Comments: 33-year-old female patient with past medical history significant for endometriosis and recent admission to rule out tubo-ovarian abscess presented to the emergency department today for evaluation of generalized abdominal pain worse over the lower abdomen. Patient states that after discharge she was feeling better, but had recurrence of pain starting last night. Patient states the pain has gradually worsened since. States that she has been nauseated with this but has not vomited. Patient states that it hurts to do any type of movement. States that when she tries to urinate it does cause pain to increase in her abdomen. She denies any constipation or diarrhea. She denies any hematuria or dysuria. Patient did have her IUD removed during her admission 2 weeks ago and was started on oral control. States that she is having some light spotting currently but denies any other abnormal vaginal discharge. Denies any fevers or chills with this. Patient denies any recent rash, shortness breath, chest pain, numbness, tingling, dizziness, weakness, headache , visual changes, or any other complaints. - Related Data Home Medications Medication Instructions Recorded Confirmed Norethindrone-E.estradiol-Iron 1 tab PO HS 08/27/18 08/27/18 [Loestrin Fe 1-20 Tablet] Previous Rx's Medication Instructions Recorded Acetaminophen-Codeine 300-30mg 2 tab PO Q6H PRN #30 tablet 08/15/18 [Tylenol #3] Ibuprofen [Motrin] 600 mg PO Q6HR PRN #30 tab 08/15/18 Hydrocodone/Acetaminophen [[place] 1 tab PO Q6HR PRN #12 tab 08/27/18 5-325] Allergies Allergy/AdvReac Type Severity Reaction Status Date / Time amoxicillin Allergy Anaphylaxis Verified 08/27/18 19:21 Review of Systems ROS Statement: Those systems with pertinent positive or pertinent negative responses have been documented in the HPI. ROS Other: All systems not noted in ROS Statement are negative. Past Medical History Past Medical History: No Reported History Additional Past Medical History / Comment(s): Obstetric history: Patient has 2 vaginal deliveries and 1 termination History of Any Multi-Drug Resistant Organisms: None Reported Past Surgical History: Cholecystectomy, Orthopedic Surgery Additional Past Surgical History / Comment(s): left knee surgery, bilateral knee scopes Past Anesthesia/Blood Transfusion Reactions: No Reported Reaction Past Psychological History: No Psychological Hx Reported Smoking Status: Former smoker Past Alcohol Use History: None Reported Past Drug Use History: Marijuana - Past Family History Father Family Medical History: Diabetes Mellitus, Hypertension Mother Family Medical History: Hypertension General Exam Limitations: no limitations General appearance: alert, in no apparent distress, other (This is a well- developed, well-nourished adult female patient in mild distress related to pain. Vital signs upon presentation are temperature 98.4F, pulse 84, respirations 18, BP 112/69, Pulse Ox 100%. ) Eye exam: Present: normal appearance, PERRL, EOMI. Absent: scleral icterus, conjunctival injection, periorbital swelling ENT exam: Present: normal exam, normal oropharynx, mucous membranes moist Respiratory exam: Present: normal lung sounds bilaterally. Absent: respiratory distress, wheezes, rales, rhonchi, stridor Cardiovascular Exam: Present: regular rate, normal rhythm, normal heart sounds. Absent: systolic murmur, diastolic murmur, rubs, gallop, clicks GI/Abdominal exam: Present: soft, tenderness (Generalized exquisite tenderness, worse over the right lower quadrant), guarding, normal bowel sounds. Absent: distended, rebound, rigid Neurological exam: Present: alert, oriented X3, CN II-XII intact Psychiatric exam: Present: normal affect, normal mood Skin exam: Present: warm, dry, intact, normal color. Absent: rash Course Vital Signs 08/27/18 08/27/18 08/27/18 18:06 20:48 22:15 Temperature 98.4 F Pulse Rate 84 71 Respiratory 118 H 18 18 Rate Blood Pressure 112/69 118/69 O2 Sat by Pulse 100 100 Oximetry 08/27/18 23:35 Temperature 98.3 F Pulse Rate 72 Respiratory 16 Rate Blood Pressure 95/51 O2 Sat by Pulse 100 Oximetry Medical Decision Making - Medical Decision Making 33-year-old female patient presented to the emergency department today for complaints of lower abdominal pain. Physical examination did reveal tenderness over the entirety of the abdomen worse over the right lower quadrant. Patient did have some guarding with this. Labs reviewed and are relatively unremarkable. Did obtain CT abdomen and pelvis to rule out pelvic etiologies which showed no evidence of appendicitis or any other abnormalities. Transvaginal ultrasound was obtained to further evaluate patient's ovarian cyst and showed the cyst did decrease in size however there is still evidence of fluid and debris in the cul-de-sac not much changed from the previous ultrasound. Was felt that the patient's pain is related to this and endometriosis. She'll be given a prescription for pain medication at home. She is instructed to call the [facility] for a sooner appointment on Thursday. Return parameters were discussed in detail. She verbalizes understanding and agreed with this plan. - Lab Data Result diagrams: 08/27/18 19:37 08/27/18 19:37 Lab Results 08/27/18 08/27/18 08/27/18 Range/Units 19:37 19:37 19:37 WBC (3.8-10.6) k/uL RBC (3.80-5.40) m/uL Hgb (11.4-16.0) gm/dL Hct (34.0-46.0) % MCV (80.0-100.0) fL MCH (25.0-35.0) pg MCHC (31.0-37.0) g/dL RDW (11.5-15.5) % Plt Count (150-450) k/uL Neutrophils % % Lymphocytes % % Monocytes % % Eosinophils % % Basophils % % Neutrophils # (1.3-7.7) k/uL Lymphocytes # (1.0-4.8) k/uL Monocytes # (0-1.0) k/uL Eosinophils # (0-0.7) k/uL Basophils # (0-0.2) k/uL Sodium 139 (137-145) mmol/L Potassium 4.1 (3.5-5.1) mmol/L Chloride 109 H (98-107) mmol/L Carbon Dioxide 24 (22-30) mmol/L Anion Gap 6 mmol/L BUN 12 (7-17) mg/dL Creatinine 0.56 (0.52-1.04) mg/dL Est GFR (CKD-EPI)AfAm >90 (>60 ml/min/1.73 sqM) Est GFR (CKD-EPI)NonAf >90 (>60 ml/min/1.73 sqM) Glucose 91 (74-99) mg/dL Calcium 9.4 (8.4-10.2) mg/dL Total Bilirubin 0.6 (0.2-1.3) mg/dL AST 14 (14-36) U/L ALT 16 (9-52) U/L Alkaline Phosphatase 65 (38-126) U/L Total Protein 7.0 (6.3-8.2) g/dL Albumin 4.1 (3.5-5.0) g/dL Amylase 49 (30-110) U/L Lipase 81 (23-300) U/L Urine Color Yellow Urine Appearance Cloudy H (Clear) Urine pH 7.0 (5.0-8.0) Ur Specific [place] 1.014 (1.001-1.035) Urine Protein Negative (Negative) Urine Glucose (UA) Negative (Negative) Urine Ketones Negative (Negative) Urine Blood Moderate H (Negative) Urine Nitrite Negative (Negative) Urine Bilirubin Negative (Negative) Urine Urobilinogen <2.0 (<2.0) mg/dL Ur Leukocyte Esterase Moderate H (Negative) Urine RBC 2 (0-5) /hpf Urine WBC 14 H (0-5) /hpf Ur Squamous Epith Cells 13 H (0-4) /hpf Urine Mucus Rare H (None) /hpf Urine HCG, Qual Not Detected (Not Detectd) 08/27/18 Range/Units 19:37 WBC 7.7 (3.8-10.6) k/uL RBC 4.01 (3.80-5.40) m/uL Hgb 12.5 (11.4-16.0) gm/dL Hct 36.7 (34.0-46.0) % MCV 91.5 (80.0-100.0) fL MCH 31.2 (25.0-35.0) pg MCHC 34.1 (31.0-37.0) g/dL RDW 13.8 (11.5-15.5) % Plt Count 216 (150-450) k/uL Neutrophils % 75 % Lymphocytes % 13 % Monocytes % 4 % Eosinophils % 6 % Basophils % 0 % Neutrophils # 5.8 (1.3-7.7) k/uL Lymphocytes # 1.0 (1.0-4.8) k/uL Monocytes # 0.3 (0-1.0) k/uL Eosinophils # 0.4 (0-0.7) k/uL Basophils # 0.0 (0-0.2) k/uL Sodium (137-145) mmol/L Potassium (3.5-5.1) mmol/L Chloride (98-107) mmol/L Carbon Dioxide (22-30) mmol/L Anion Gap mmol/L BUN (7-17) mg/dL Creatinine (0.52-1.04) mg/dL Est GFR (CKD-EPI)AfAm (>60 ml/min/1.73 sqM) Est GFR (CKD-EPI)NonAf (>60 ml/min/1.73 sqM) Glucose (74-99) mg/dL Calcium (8.4-10.2) mg/dL Total Bilirubin (0.2-1.3) mg/dL AST (14-36) U/L ALT (9-52) U/L Alkaline Phosphatase (38-126) U/L Total Protein (6.3-8.2) g/dL Albumin (3.5-5.0) g/dL Amylase (30-110) U/L Lipase (23-300) U/L Urine Color Urine Appearance (Clear) Urine pH (5.0-8.0) Ur Specific [place] (1.001-1.035) Urine Protein (Negative) Urine Glucose (UA) (Negative) Urine Ketones (Negative) Urine Blood (Negative) Urine Nitrite (Negative) Urine Bilirubin (Negative) Urine Urobilinogen (<2.0) mg/dL Ur Leukocyte Esterase (Negative) Urine RBC (0-5) /hpf Urine WBC (0-5) /hpf Ur Squamous Epith Cells (0-4) /hpf Urine Mucus (None) /hpf Urine HCG, Qual (Not Detectd) - Radiology Data Radiology results: report reviewed, image reviewed CT abdomen and pelvis with contrast was obtained. Report was reviewed in its entirety. Impression by Dr. Rivera shows mild free fluid in the pelvis similar to old exam. There has been removal of the IUD compared to old exam. Transvaginal ultrasound of the pelvis was obtained. Report was reviewed in its entirety. Impression by Dr. Rivera shows multiple ovarian cysts. No solid adnexal mass. Normal uterus and endometrium. No evidence of ovarian torsion. Mild to moderate free fluid in the cul-de-sac. Disposition Clinical Impression: Abdominal pain, Endometriosis Disposition: HOME SELF-CARE Condition: Good Instructions: Endometriosis (ED), Abdominal Pain (ED) Additional Instructions: Take medications as directed. Follow-up with your primary care physician for recheck as as possible. Follow-up with her sales demonstrator for recheck, call Thursday for a sooner appointment. Return here immediately for any new, worsening , or concerning symptoms. Prescriptions: Hydrocodone/Acetaminophen [[place] 5-325] 1 tab PO Q6HR PRN #12 tab PRN Reason: Pain Is patient prescribed a controlled substance at d/c from ED?: Yes When asked, does pt state using other controlled substances?: No If prescribed controlled substance>3 days was MAPS reviewed?: Prescribed <3 Days If opioid is for acute pain is fill amount 7 days or less?: Yes If Rx opioid, was Start Talking consent form obtained?: Yes Referrals: Patty Mendoza MD [Primary Care Provider] - 1-2 days Brianne Finley DO [Doctor of Osteopathic Medicine] - 1-2 days Time of Disposition: 23:20
[2018-08-27 19:51] LABS: Basophils % (A) 0 %; Eosinophils # (A) 0.4 k/uL (0-0.7); Eosinophils % (A) 6 %; HCT 36.7 % (34.0-46.0); HGB 12.5 gm/dL (11.4-16.0); Lymphocytes % (A) 13 %; MCH 31.2 pg (25.0-35.0); MCHC 34.1 g/dL (31.0-37.0); MCV 91.5 fL (80.0-100.0); Mean Platelet Volume 7.7; Monocytes # (A) 0.3 k/uL (0-1.0); Monocytes % (A) 4 %; Neutrophils # (A) 5.8 k/uL (1.3-7.7); Neutrophils % (A) 75 %; Platelet Count 216 k/uL (150-450); RBC 4.01 m/uL (3.80-5.40); RDW 13.8 % (11.5-15.5); WBC 7.7 k/uL (3.8-10.6)
[2018-08-27 19:56] LABS: Appearance,Urine Cloudy (Clear); Bilirubin,Urine Negative (Negative); Blood,Urine Moderate (Negative); Color,Urine Yellow; Glucose,Urine (UA) Negative (Negative); Ketones,Urine Negative (Negative); Leukocyte Esterase,Urine Moderate (Negative); Mucus,Urine Rare /hpf; Nitrite,Urine Negative (Negative); Protein,Urine Negative (Negative); RBC,Urine 2 /hpf (0-5); Specific Gravity,Urine 1.014 (1.001-1.035); Squamous Epithelial Cell,Urine 13 /hpf (0-4); Urobilinogen,Urine <2.0 mg/dL (<2.0); WBC,Urine 14 /hpf (0-5)
[2018-08-27 20:06] LABS: ALT 16 U/L (9-52); AST 14 U/L (14-36); Albumin 4.1 g/dL (3.5-5.0); Alkaline Phosphatase 65 U/L (38-126); Amylase 49 U/L (30-110); Anion Gap 6 mmol/L; Blood Urea Nitrogen 12 mg/dL (7-17); Calcium 9.4 mg/dL (8.4-10.2); Carbon Dioxide 24 mmol/L (22-30); Chloride 109 mmol/L (98-107); Glucose 91 mg/dL (74-99); Lipase 81 U/L (23-300); Potassium 4.1 mmol/L (3.5-5.1); Sodium 139 mmol/L (137-145); Total Bilirubin 0.6 mg/dL (0.2-1.3)
--- NOTE | 2018-08-27 20:39 | CT ---
EXAMINATION TYPE: CT abdomen pelvis w con DATE OF EXAM: 08/27/2018 COMPARISON: 12/07/2017 HISTORY: Abdominal pain with nausea x1 day CT DLP: 789.3 mGycm Automated exposure control for dose reduction was used. TECHNIQUE: Helical acquisition of images was performed from the lung bases through the pelvis. CONTRAST: Performed without Oral Contrast and with IV Contrast, patient injected with 100 mL of Isovue 300. FINDINGS: Lung bases are clear. There is no pleural effusion. Heart size appears normal. Liver spleen pancreas appear normal. There are clips from cholecystectomy. The intrahepatic bile ducts are not dilated. Ext rahepatic bile duct is prominent and measures 12 mm. Stomach appears normal. There is no adrenal mass. There is normal contrast opacification of the kidneys. There is no hydronep hrosis. There is no retroperitoneal adenopathy. Bladder distends smoothly. There is some free fluid in the pelvis. Uterus is anteverted. I see no def inite pelvic mass. I see no intestinal wall thickening. There are no dilated loops. Appendix is not d efinitely seen. There is no sign of appendicitis. There is no mesenteric adenopathy or edema. There is no inguinal hernia. There are multiple bilateral inguinal lymph nodes that measure up to 15 mm. The lumbar spine is intact. Bony pelvis is intact. IMPRESSION: THERE IS MILD FREE FLUID IN THE PELVIS SIMILAR TO OLD EXAM. THERE IS BEEN REMOVAL OF THE IUD COMPARED TO OLD EXAM.
[2018-08-27] MEDS ORDERED: HYDROmorphone 1 MG/ML 1 ML SYRINGE IVP STA (21:55)
--- NOTE | 2018-08-27 23:06 | US ---
EXAMINATION TYPE: US transvaginal DATE OF EXAM: 08/27/2018 COMPARISON: US/ CT CLINICAL HISTORY: Pain. Pt states pelvic pain, more on right side/ recently diagnosed with endometrio sis TECHNIQUE: Transvaginal (TV). Date of LMP: 08/14/2018 EXAM MEASUREMENTS: Uterus: 9.6 x 3.4 x 5.9 cm Endometrial Stripe: 0.4 cm Right Ovary: 3.7 x 2.6 x 3.2 cm Left Ovary: 3.5 x 2.9 x 2.9 cm 1. Uterus: Anteverted wnl 2. Endometrium: wnl 3. Right Ovary: wnl, follicles 4. Left Ovary: probable resolving hemorrhagic cyst= 2.3 x 1.5 x 1.8 cm Spectral, color and waveform doppler imaging shows good arterial and venous flow within the ovaries ; there is no evidence for ovarian torsion. 5. Bilateral Adnexa: wnl 6. Posterior cul-de-sac: Moderate amount of free fluid with debris suggesting blood IMPRESSION: Multiple ovarian cysts. No solid adnexal mass. Normal uterus and endometrium. No evidence of ovarian torsion. Mild to moderate free fluid in the cul-de-sac.
[2018-08-27 23:39] VITALS: BP 95/51; PULSE 72; RESP 16; TEMP 98.3
== END 2018-08-27 23:35 | disposition home or self-care (01) ==
LOC: EC 17:25
DX: N80.9 Endometriosis, unspecified (principal); N83.209 Unspecified ovarian cyst, unspecified side; Z87.891 Personal history of nicotine dependence; Z88.0 Allergy status to penicillin; Z79.3 Long term (current) use of hormonal contraceptives; Z90.49 Acquired absence of other specified parts of digestive tract
CPT/HCPCS: 36415; 80053; 82150; 83690; 85025; 81001; 81025; 93975; 76830; 74177; 99284; 96374; 96375 ×2; 96361 ×4; J2270; J2405; J1170

== ENCOUNTER 2019-05-17 20:13 | Emergency (ER) | payer OTHER ==
[2019-05-17] MEDS ORDERED: KETOROLAC 60 MG/2 ML VIAL IM STA (21:12)
[2019-05-17] MEDS ORDERED: NYSTATIN 100,000 UNIT/ML SUSP 500,000 UNIT/5 ML CUP PO SCH (22:00)
--- NOTE | 2019-05-17 22:02 | ED ---
General Adult HPI - General Chief complaint: Allergic Reaction Stated complaint: Swollen tongue, allergic reaction Time Seen by Provider: 05/17/19 20:38 Source: patient, RN notes reviewed, old records reviewed Mode of arrival: ambulatory Limitations: no limitations - History of Present Illness Initial comments: 34-year-old female patient presents ED for 2 days of white tongue, mild pain and mild swelling. Patient fourth this began approximately 2 days after she took a Diflucan pill. Patient denies any other recent medications or new exposures. Patient has any other complaints. Denies any fevers chills nausea vomiting diarrhea abdominal pain rash, difficulty breathing, sensation of throat closure. Patient denies any personal history of immunosuppression or HIV. Denies any other complaints at this time. Systemic: Pt denies fatigue, fever/chills, rash. Pt denies weakness, night sweats, weight loss. Neuro: Pt denies headache, visual disturbances, syncope or pre-syncope. HEENT: Pt denies ocular discharge or irritation, otalgia, rhinorrhea, pharyngitis or notable lymphadenopathy. Cardiopulmonary: Pt denies chest pain, SOB, heart palpitations, dyspnea on exertion. Abdominal/GI: Pt denies abdominal pain, n/v/d. : Pt denies dysuria, burning w/ urination, frequency/urgency. Denies new onset urinary or bowel incontinence. MSK: Pt denies myalgia, loss of strength or function in extremities. Neuro: Pt denies new onset weakness, paresthesias. - Related Data Home Medications Medication Instructions Recorded Confirmed Norethindrone-E.estradiol-Iron 1 tab PO HS 08/27/18 08/27/18 [Loestrin Fe 1-20 Tablet] Previous Rx's Medication Instructions Recorded Acetaminophen-Codeine 300-30mg 2 tab PO Q6H PRN #30 tablet 08/15/18 [Tylenol #3] Ibuprofen [Motrin] 600 mg PO Q6HR PRN #30 tab 08/15/18 Hydrocodone/Acetaminophen [[place] 1 tab PO Q6HR PRN #12 tab 08/27/18 5-325] Nystatin 500,000 unit PO Q6HR 10 Days #1 05/17/19 bottle Allergies Allergy/AdvReac Type Severity Reaction Status Date / Time amoxicillin Allergy Anaphylaxis Verified 08/27/18 19:21 fluconazole [From Diflucan] Allergy Swelling Verified 05/17/19 20:20 Review of Systems ROS Statement: Those systems with pertinent positive or pertinent negative responses have been documented in the HPI. ROS Other: All systems not noted in ROS Statement are negative. Past Medical History Past Medical History: No Reported History Additional Past Medical History / Comment(s): Obstetric history: Patient has 2 vaginal deliveries and 1 termination History of Any Multi-Drug Resistant Organisms: None Reported Past Surgical History: Cholecystectomy, Orthopedic Surgery Additional Past Surgical History / Comment(s): left knee surgery, bilateral knee scopes Past Anesthesia/Blood Transfusion Reactions: No Reported Reaction Past Psychological History: No Psychological Hx Reported Smoking Status: Former smoker Past Alcohol Use History: None Reported Past Drug Use History: Marijuana - Past Family History Father Family Medical History: Diabetes Mellitus, Hypertension Mother Family Medical History: Hypertension General Exam - General Exam Comments Initial Comments: Constitutional: NAD, AOX3, Pt has pleasant affect. HEENT: NC/AT, trachea midline, neck supple, no lymphadenopathy. Posterior pharynx non erythematous, without exudates. External ears appear normal, without discharge. Mucous membranes moist. Eyes PERRLA, EOM intact. There is no scleral icterus. No pallor noted. Thrush noted on tongue, no lesions. No posterior pharyngeal edema or swelling. Cardiopulmonary: RRR, no murmurs, rubs or gallops, no JVD noted. Lungs CTAB in anterior and posterior [place]. No peripheral edema. Abdominal exam: Abdomen soft and non-distended. Abdomen non-tender to palpation in all 4 quadrants. Bowel sounds active in LLQ. No hepatosplenomegaly. No ecchymosis Neuro: CN II-XII grossly intact. No nuchal rigidity. No raccon eyes, no barbosa sign, no hemotympanum. No cervical spinal tenderness. MSK: No posterior calf tenderness bilaterally, homans sign negative bilaterally. Posterior tibialis and radial pulse +2 bilaterally. Sensation intact in upper and lower extremities. Full active ROM in upper and lower extremities, 5/5 stregnth. Limitations: no limitations Course Vital Signs 05/17/19 20:17 Temperature 98.4 F Pulse Rate 60 Respiratory 18 Rate Blood Pressure 132/81 O2 Sat by Pulse 100 Oximetry Medical Decision Making - Medical Decision Making 34-year-old female patient presents ED for 2 days of white tongue, mild pain and mild swelling. Patient fourth this began approximately 2 days after she took a Diflucan pill. Patient denies any other recent medications or new exposures. Patient has any other complaints. Denies any fevers chills nausea vomiting diarrhea abdominal pain rash, difficulty breathing, sensation of throat closure. Patient denies any personal history of immunosuppression or HIV. Denies any other complaints at this time. Patient vital signs stable, afebrile. Physical exam thrush. Patient administered nystatin. Patient discharged with nystatin. Patient to follow up with primary care provider for continued evaluatio, will return to ER if condition worsens in anyway. Case discussed with Dr. Jackson. Disposition Clinical Impression: Thrush, oral Disposition: HOME SELF-CARE Condition: Stable Instructions (If sedation given, give patient instructions): Oral Candidiasis (ED) Additional Instructions: Patient to adhere to previously discussed treatment plan and will take medication(s) as directed. Patient to follow up with PCP in 1-2 days. Patient to return to ED if symptoms do not improve. Take medication as directed. Follow up with primary care provider tomorrow. Return to ER if condition worsens in any way. Prescriptions: Nystatin 500,000 unit PO Q6HR 10 Days #1 bottle Is patient prescribed a controlled substance at d/c from ED?: No Referrals: Patty Mendoza MD [Primary Care Provider] - 1-2 days
[2019-05-17 22:12] VITALS: BP 136/78; PULSE 76; RESP 16; TEMP 98.7
== END 2019-05-17 22:11 | disposition home or self-care (01) ==
LOC: EC 20:13
DX: B37.0 Candidal stomatitis (principal); Z87.891 Personal history of nicotine dependence; Z79.3 Long term (current) use of hormonal contraceptives; Z88.0 Allergy status to penicillin; Z88.1 Allergy status to other antibiotic agents
CPT/HCPCS: 99284; 96372; J1885

== ENCOUNTER → 2022-09-16 | Outpatient (CLI) | payer BC ==
--- NOTE | 2022-09-17 08:15 | MM ---
Reason for Exam: Screening (asymptomatic). Baseline mammogram. Patient History: Menarche at age 12. First Full-Term at age 21. Currently using Hormonal Contraceptives, for 1 month. Maternal aunt had ovarian cancer. Maternal grandmother had ovarian cancer. Mother had ovarian cancer. Last menstrual period: 09/16/2022 Risk Values: Corrina 5 year model risk: 0.3%. NCI Lifetime model risk: 10.0%. Prior Study Comparison: Patient's first Mammogram. No prior studies available for comparison. Tissue Density: There are scattered fibroglandular densities. Findings: Analyzed By CAD. Focal asymmetry in the posterior depth left breast on cc view only. There is no suspicious group of microcalcifications in either breast. Overall Assessment: Incomplete: need additional imaging evaluation, BI-RAD 0 Management: Diagnostic Breast Ultrasound of the left breast. Special View Mammogram of the left breast. Summation density versus true lesion. Suspect asymmetric prominent tissue. Follow-up advised however. Electronically signed and approved by: Yusuf Chang M.D.
== END | disposition home or self-care (01) ==
LOC: RADMAMWWP 07:27
PROVIDERS: ATTEND Obstetrics & Gynecology
DX: Z12.31 Encounter for screening mammogram for malignant neoplasm of breast (principal); Z80.41 Family history of malignant neoplasm of ovary
CPT/HCPCS: 77063; 77067

== ENCOUNTER → 2022-09-23 | Outpatient (CLI) | payer BC ==
--- NOTE | 2022-09-23 14:50 | MM ---
Reason for Exam: Additional evaluation requested from abnormal screening. Last screening mammogram was performed less than 1 month ago. Patient History: Menarche at age 12. First Full-Term at age 21. Currently using Hormonal Contraceptives, for 1 month. Maternal aunt had ovarian cancer. Maternal grandmother had ovarian cancer. Mother had ovarian cancer. Last menstrual period: 09/09/2022 Risk Values: Corrina 5 year model risk: 0.3%. NCI Lifetime model risk: 10.0%. Prior Study Comparison: 09/16/2022 Bilateral MG 3D screening mammo w/cad, [facility]. Tissue Density: Left: The breast tissue is heterogeneously dense. This may lower the sensitivity of mammography. Findings: Analyzed By CAD. There is persistent asymmetry on the CC view, posterior left breast on compression CC view. Overall Assessment: Incomplete: need additional imaging evaluation, BI-RAD 0 Management: Diagnostic Breast Ultrasound of the left breast. A clinical breast exam by your physician is recommended on an annual basis and results should be correlated with mammographic findings. This exam should not preclude additional follow-up of suspicious palpable abnormalities. Results were given to the patient verbally at the time of exam. Electronically signed and approved by: Ignacio Davies D.O.
--- NOTE | 2022-09-23 15:20 | USB ---
Patient History: Menarche at age 12. First Full-Term at age 21. Currently using Hormonal Contraceptives, for 1 month. Maternal aunt had ovarian cancer. Maternal grandmother had ovarian cancer. Mother had ovarian cancer. Risk Values: Corrina 5 year model risk: 0.3%. NCI Lifetime model risk: 10.0%. Technique: Method: Targeted. Prior Study Comparison: 09/16/2022 Bilateral MG 3D screening mammo w/cad, [facility]. Findings: The upper inner quadrant of the left breast, the axilla of the left breast and the retroareolar of the left breast were scanned. Targeted ultrasound of the left breast from 9-12 o'clock with evaluation of the nipple and axilla toe was performed. No solid or cystic mass identified. Findings a mammography most likely represent prominent breast tissue. Overall Assessment: Negative, BI-RAD 1 Management: Screening Mammogram of both breasts in 1 year. A clinical breast exam by your physician is recommended on an annual basis and results should be correlated with mammographic findings. This exam should not preclude additional follow-up of suspicious palpable abnormalities. Results were given to the patient verbally at the time of exam. Electronically signed and approved by: Ignacio Davies D.O.
== END | disposition home or self-care (01) ==
LOC: RADMAMWWP 14:16
PROVIDERS: ATTEND Obstetrics & Gynecology
DX: R92.8 Other abnormal and inconclusive findings on diagnostic imaging of breast (principal); Z80.41 Family history of malignant neoplasm of ovary
CPT/HCPCS: 77061; 77065